=== PATIENT | female | born 1970 | race American Indian/Alaskan Native ===

== ENCOUNTER 2021-09-13 20:34 | Emergency (ER) | payer MEDICAID ==
--- NOTE | 2021-09-13 21:42 | Event Note ---
ED Screening Note Date of service: 09/13/21 Time: 21:41 ED Screening Note: 51-year-old female patient presents to emergency department with complaints of chest/epigastric pressure starting two days ago. Patient states symptoms began after eating a meal. She has attributed her symptoms to "something stuck." Symptoms did not start until hours after her meal was finished. No belching, nausea, vomiting. General: Awake, appropriately interactive, no acute distress. Neck: Supple. Full range of motion intact. Cardiovascular: Normal peripheral perfusion. Pulmonary: No respiratory distress. Patient is speaking normally without use of accessory muscles. Skin: No apparent rashes or lesions. Neurological: No facial asymmetry. Speech is clear. Follows commands. Patient is alert and oriented. Musculoskeletal: Moves all four extremities spontaneously with normal range of motion. Psych: Cooperative. Appropriate mood and affect. EKG ordered. Labs and imaging deferred to additional ED providers following full history and complete physical exam. I have greeted and performed a focused rapid initial assessment of this patient. A comprehensive ED assessment and evaluation of the patient, analysis of all test results, and completion of the medical decision-making process will be conducted by additional ED providers. This initial assessment/diagnostic orders/clinical plan/treatment(s) is/are subject to change based on patients health status, clinical progression and re-assessment. Further treatment and workup at subsequent clinical provider's discretion. Patient/guardian urged not to elope from the ED as their condition may be serious if not clinically assessed and managed.
--- NOTE | 2021-09-13 22:15 | Emergency Department Report ---
HPI - General Chief Complaint: Chest Pain Time Seen by Provider: 09/13/21 21:37 - HPI HPI: MSE 4 The patient is a 51-year-old female present with a chief complaint of chest discomfort with swallowing. The patient states for the past 3 days she has had pain in her chest whenever she drinks water or eats solid food. The patient states he feels as though the food gets stuck and takes a long time to pass. Patient denies nausea vomiting or fever. Patient also complains of pain in her right back that is pleuritic in nature since yesterday. Patient denies history of cough. Patient denies any previous episodes of the same before 3 days ago. ED Past Medical Hx - Past Medical History Previous Medical History?: No Hx Diabetes: Yes (Borderline diabetes) - Surgical History Past Surgical History?: No Additional Surgical History: - Family History Family history: no significant - Social History Smoking Status: Never Smoker Substance Use Type: None (Denies illicit drug use), Alcohol (Rarely) - Medications Home Medications: Home Medications Medication Instructions Recorded Confirmed Last Taken Type Famotidine [Pepcid] 20 mg PO BID #30 tablet 09/14/21 Unknown Rx HYDROcodone/APAP 5-325 [[place] 1 - 2 each PO Q6HR PRN #14 tablet 09/14/21 Unknown Rx 5/325] ED Review of Systems ROS: Stated complaint: UPPER ABD/BACK PAIN Other details as noted in HPI Constitutional: denies: fever Eyes: denies: eye pain ENT: denies: throat pain Respiratory: denies: cough Cardiovascular: chest pain Endocrine: no symptoms reported Gastrointestinal: denies: nausea, vomiting Genitourinary: denies: dysuria Musculoskeletal: back pain Neurological: denies: headache Physical Exam - Physical Exam Vital Signs: Vital Signs 09/13/21 20:51 Temperature 98.3 F Pulse Rate 99 H Respiratory 18 Rate Blood Pressure 142/99 O2 Sat by Pulse 99 Oximetry Physical Exam: GENERAL: The patient is well-developed well-nourished female sitting in chair not appearing to be in acute distress. [] HEENT: Normocephalic. Atraumatic. Extraocular motions are intact. Patient has moist mucous membranes. NECK: Supple. Trachea midline CHEST/LUNGS: Clear to auscultation. There is no respiratory distress noted. HEART/CARDIOVASCULAR: Regular. There is no tachycardia. There is no gallop rub or murmur. ABDOMEN: Abdomen is soft, nontender. Patient has normal bowel sounds. There is no abdominal distention. SKIN: There is no rash. There is no edema. There is no diaphoresis. NEURO: The patient is awake, alert, and oriented. The patient is cooperative. The patient has no focal neurologic deficits. The patient has normal speech. GCS 15 MUSCULOSKELETAL: There is no evidence of acute injury. ED Course Vital Signs 09/13/21 20:51 Temperature 98.3 F Pulse Rate 99 H Respiratory 18 Rate Blood Pressure 142/99 O2 Sat by Pulse 99 Oximetry ED Medical Decision Making - Lab Data Result diagrams: 09/13/21 21:51 09/13/21 21:51 - Radiology Data Radiology results: report reviewed (Barium swallow x-ray), image reviewed (Barium swallow x-ray) interpreted by me: Barium swallow x-ray-no evidence of obstruction or extravasation visualized [facility] [address] [place] [address] Fluoroscopy Report Signed Patient: ZOË CRUZ MR#: [id number] 05 : 1970 Acct:[id number] Age/Sex: 51 / F ADM Date: 09/13/21 Loc: ED Attending Dr: Ordering Physician: JAREN HA MD Date of Service: 09/13/21 Procedure(s): FL barium swallow (esophogram) Accession Number(s): [id number] cc: JAREN HA MD Fluoro Time In Minutes: 0.0 CHEST 1 VIEW INDICATION / CLINICAL INFORMATION: Chest discomfort with eating solid food. COMPARISON: None available. FINDINGS: SUPPORT DEVICES: None. HEART / MEDIASTINUM: No significant abnormality. LUNGS / PLEURA: No significant pulmonary or pleural abnormality. No pneumothorax. ADDITIONAL FINDINGS: No significant additional findings. IMPRESSION: 1. No acute findings. Signer Name: Phani De La Paz DO Signed: 09/13/2021 11:05 PM Workstation Name: [id number] Transcribed By: ANDI Dictated By: PHANI DE LA PAZ DO Electronically Authenticated By: PHANI DE LA PAZ DO Signed Date/Time: 09/13/212304 DD/ 03 TD/TT: Print - Differential Diagnosis Achalasia, esophageal web, GERD, PE, ACS Critical care attestation.: If time is entered above; I have spent that time in minutes in the direct care of this critically ill patient, excluding procedure time. ED Disposition Clinical Impression: Dysphagia Disposition: 01 HOME / SELF CARE / HOMELESS Is pt being admited?: No Does the pt Need Aspirin: No Condition: Stable Instructions: Dysphagia Eating Plan, Bite Size Food, Dysphagia Eating Plan, Minced and Moist Foods, Dysphagia Eating Plan, Pureed Additional Instructions: Return to the emergency department should you develop worsening symptoms, inability to tolerate food or liquids, high fever or any other concerns Prescriptions: HYDROcodone/APAP 5-325 [[place] 5/325] 1 - 2 each PO Q6HR PRN #14 tablet PRN Reason: Pain Famotidine [Pepcid] 20 mg PO BID #30 tablet Referrals: TATY EVANS MD [Staff Physician] - 3-5 Days (Dr. Evans is a disabilities services officer. Please follow-up with him for further evaluation) Time of Disposition: 00:02
[2021-09-13 22:22] LABS: Basophils % (Auto) 0.9 % (0.0-1.8); Eosinophils # (Auto) 0.2 K/mm3 (0.0-0.4); Eosinophils % (Auto) 3.6 % (0.0-4.3); Hemoglobin 13.2 gm/dl (10.1-14.3); Lymphocytes # (Auto) 2.2 K/mm3 (1.2-5.4); Lymphocytes % (Auto) 43.5 % (13.4-35.0); Mean Corpuscular HGB Conc 34 % (30-34); Mean Corpuscular Volume 87 fl (79-97); Monocytes # (Auto) 0.4 K/mm3 (0.0-0.8); Monocytes % (Auto) 7.8 % (0.0-7.3); Red Cell Distribution Width 14.4 % (13.2-15.2)
[2021-09-13 22:29] LABS: Platelet Count 146 K/mm3 (140-440)
[2021-09-13 22:33] LABS: Creatine Kinase MB 1.9 ng/mL (0.0-4.0)
[2021-09-13 22:34] LABS: Blood Urea Nitrogen 12 mg/dL (7-17); Calcium 9.6 mg/dL (8.4-10.2); Hemolysis Index 13
[2021-09-13 22:40] LABS: BUN/Creatinine Ratio 17
--- NOTE | 2021-09-13 23:09 | Fluoroscopy Report ---
CHEST 1 VIEW INDICATION / CLINICAL INFORMATION: Chest discomfort with eating solid food. COMPARISON: None available. FINDINGS: SUPPORT DEVICES: None. HEART / MEDIASTINUM: No significant abnormality. LUNGS / PLEURA: No significant pulmonary or pleural abnormality. No pneumothorax. ADDITIONAL FINDINGS: No significant additional findings. IMPRESSION: 1. No acute findings. Signer Name: Phnai Church DO Signed: 09/13/2021 11:05 PM Workstation Name: [id number]
[2021-09-13] MEDS ORDERED: ALUM-MAG HYDROXIDE-SIMETHICONE 200-200-20MG/5ML ORAL LIQD 30 ML PO ONE (23:45)
[2021-09-13] MEDS ORDERED: LIDOCAINE VISCOUS 2% 15 ML ORAL LIQD PO ONE (23:45)
[2021-09-14] MEDS ORDERED: HYDROcodone/ACETAMINOPHEN 5-325 MG TAB PO ONE (00:07)
[2021-09-14 00:49] VITALS: BP 109/76
--- NOTE | 2021-09-18 10:05 | Electrocardiograph Report ---
[facility] Test Date: 2021-09-13 Test Time: 23:08:58 Pat Name: ZOË CRUZ Department: Room: Gender: F Traffic Coordinator: JAI : 1970 Requested By: FIDELINA WALKER Order Number: [id number] Reading MD: Ilene Anderson Measurements Intervals [place] Rate: 75 P: 47 PA: 153 QRS: 42 QRSD: 83 T: 30 QT: 367 QTc: 410 Interpretive Statements Sinus rhythm Probable left atrial enlargement Probable anteroseptal infarct, old No previous ECG available for comparison Electronically Signed On 09-18-2021 10:05:16 EDT by Ilene Anderson
== END 2021-09-14 00:46 | disposition home or self-care (01) ==
LOC: ED 20:34
DX: R13.10 Dysphagia, unspecified (principal); R07.89 Other chest pain; E11.9 Type 2 diabetes mellitus without complications; Z98.890 Other specified postprocedural states; Z88.5 Allergy status to narcotic agent; Z79.899 Other long term (current) drug therapy
CPT/HCPCS: 36415; 74220; 80048; 82550; 82553; 83690; 84484; 85025; 85379; 93005; 99284; Q9963

== ENCOUNTER 2022-01-14 22:47 | Emergency (ER) | payer MEDICAID ==
--- NOTE | 2022-01-15 04:53 | Emergency Department Report ---
ED ENT HPI - General Chief complaint: Dental/Oral Stated complaint: LUMP IN GUMS/FEVER/PAIN Time Seen by Provider: 01/15/22 03:29 Source: patient Mode of arrival: Ambulatory Limitations: No Limitations - History of Present Illness Initial comments: 51-year-old female that emerge department complaining of pain to the right lower molar region. She normally wears partial dentures today but unable to wear them due to feeling a nodule there which is growing more and more tender over the last 3 days but the pain is been present for over a week. Pain is dull and throbbing worse with palpation and chewing she reports no hemoptysis no hematemesis hematochezia, no fever, chills, sweats. No odynophagia or dysphagia. -: Gradual Severity: mild Quality: aching, dull Consistency: constant Improves with: none Worsens with: none Associated Symptoms: toothache - Related Data Previous Rx's Medication Instructions Recorded Last Taken Type Famotidine [Pepcid] 20 mg PO BID #30 tablet 09/14/21 Unknown Rx HYDROcodone/APAP 5-325 [[place] 1 - 2 each PO Q6HR PRN #14 tablet 09/14/21 Unknown Rx 5/325] Chlorhexidine Mouthwash [Peridex] 15 ml MM BID #1 bottle 01/15/22 Unknown Rx Lidocaine Viscous 2% 5 ml MM Q3H PRN #120 udc 01/15/22 Unknown Rx Allergies Allergy/AdvReac Type Severity Reaction Status Date / Time ondansetron [From Zofran] Allergy Unknown Verified 09/13/21 20:50 ED Dental HPI - General Chief complaint: Dental/Oral Stated complaint: LUMP IN GUMS/FEVER/PAIN Time Seen by Provider: 01/15/22 03:29 Source: patient Mode of arrival: Ambulatory Limitations: No Limitations - Related Data Previous Rx's Medication Instructions Recorded Last Taken Type Famotidine [Pepcid] 20 mg PO BID #30 tablet 09/14/21 Unknown Rx HYDROcodone/APAP 5-325 [[place] 1 - 2 each PO Q6HR PRN #14 tablet 09/14/21 Unknown Rx 5/325] Chlorhexidine Mouthwash [Peridex] 15 ml MM BID #1 bottle 01/15/22 Unknown Rx Lidocaine Viscous 2% 5 ml MM Q3H PRN #120 udc 01/15/22 Unknown Rx Allergies Allergy/AdvReac Type Severity Reaction Status Date / Time ondansetron [From Zofran] Allergy Unknown Verified 09/13/21 20:50 ED Review of Systems ROS: Stated complaint: LUMP IN GUMS/FEVER/PAIN Other details as noted in HPI Comment: All other systems reviewed and negative ED Past Medical Hx - Past Medical History Hx Diabetes: Yes (Borderline diabetes) - Surgical History Additional Surgical History: - Social History Smoking Status: Never Smoker Substance Use Type: None (Denies illicit drug use), Alcohol (Rarely) - Medications Home Medications: Home Medications Medication Instructions Recorded Confirmed Last Taken Type Famotidine [Pepcid] 20 mg PO BID #30 tablet 09/14/21 Unknown Rx HYDROcodone/APAP 5-325 [[place] 1 - 2 each PO Q6HR PRN #14 tablet 09/14/21 Unknown Rx 5/325] Chlorhexidine Mouthwash [Peridex] 15 ml MM BID #1 bottle 01/15/22 Unknown Rx Lidocaine Viscous 2% 5 ml MM Q3H PRN #120 udc 01/15/22 Unknown Rx ED Physical Exam - General Limitations: No Limitations General appearance: alert, in no apparent distress - Head Head exam: Present: atraumatic, normocephalic - Eye Eye exam: Present: normal appearance, PERRL, EOMI Pupils: Present: normal accommodation - ENT ENT exam: Present: normal exam, normal orophraynx, mucous membranes moist, TM's normal bilaterally - Neck Neck exam: Present: normal inspection, full ROM - Respiratory Respiratory exam: Present: normal lung sounds bilaterally. Absent: respiratory distress, wheezes, rales, chest wall tenderness, accessory muscle use - Cardiovascular Cardiovascular Exam: Present: regular rate, normal rhythm. Absent: systolic murmur, diastolic murmur, rubs, gallop - GI/Abdominal GI/Abdominal exam: Present: soft, normal bowel sounds - Extremities Exam Extremities exam: Present: normal inspection - Back Exam Back exam: Present: normal inspection - Neurological Exam Neurological exam: Present: alert, oriented X3 - Psychiatric Psychiatric exam: Present: normal affect, normal mood - Skin Skin exam: Present: warm, dry, intact, normal color. Absent: rash ED Course Vital Signs 01/15/22 00:49 Temperature 98.3 F Pulse Rate 95 H Respiratory 16 Rate Blood Pressure 143/96 [Right] O2 Sat by Pulse 99 Oximetry Critical care attestation.: If time is entered above; I have spent that time in minutes in the direct care of this critically ill patient, excluding procedure time. ED Disposition Clinical Impression: Dentalgia Disposition: 01 HOME / SELF CARE / HOMELESS Is pt being admited?: No Does the pt Need Aspirin: No Condition: Stable Instructions: Acute Pain, Adult Prescriptions: Lidocaine Viscous 2% 5 ml MM Q3H PRN #120 udc PRN Reason: Pain, Moderate (4-6) Chlorhexidine Mouthwash [Peridex] 15 ml MM BID #1 bottle Referrals: PRIMARY CARE, [Primary Care Provider] - 3-5 Days [facility] [Outside] - 3-5 Days
[2022-01-15 05:09] VITALS: BP 146/91
== END 2022-01-15 05:07 | disposition home or self-care (01) ==
LOC: ED 22:47
DX: K08.89 Other specified disorders of teeth and supporting structures (principal); Z88.8 Allergy status to other drugs, medicaments and biological substances; F10.20 Alcohol dependence, uncomplicated
CPT/HCPCS: 99282